=== PATIENT | male | born 1990 | race Asian ===

== ENCOUNTER 2017-07-03 20:50 | Inpatient (IN) | payer BC, MEDICAID ==
[2017-07-03] MEDS ORDERED: Morphine Sulfate 2 mg/mL 1mL Syr IVP PRN (21:32)
[2017-07-03] MEDS: D5-0.9%NS 1,000 ML IV SCH (21:45)
[2017-07-03 22:05] VITALS: BP 113/63
[2017-07-03 23:00] LABS: HEMATOCRIT 36.8 % (39.0-49.0); HEMOGLOBIN 11.9 gm/dL (13.2-17.3); MEAN CORPUSCULAR HEMOGLOBIN 20.3 pg (26.0-30.0); MEAN CORPUSCULAR HGB CONC 32.3 pg (28.0-36.0); MEAN PLATELET VOLUME 7.6 fl; PLATELET COUNT 522 Th/cmm (150-400); RED BLOOD COUNT 5.86 Mil/cmm (4.30-5.70); RED CELL DISTRIBUTION WIDTH 13.1 % (11.5-20.0)
[2017-07-03 23:06] LABS: ALKALINE PHOSPHATASE 142 U/L (34-104); BILIRUBIN,TOTAL 0.4 mg/dL (0.3-1.0); BUN - UREA NITROGEN 16 mg/dL (7-25); CALCIUM SERUM 9.5 mg/dL (8.6-10.3); CHLORIDE 100 mEq/L (98-107); GLUCOSE 121 mg/dL (70-105); SGOT 36 U/L (13-39); SGPT/ALT 58 U/L (7-52); SODIUM SERUM 135 mEq/L (136-145)
[2017-07-03 23:14] LABS: WHITE BLOOD COUNT 19.8 Th/cmm (4.8-10.8)
[2017-07-03 23:37] LABS: MEAN CELL VOLUME 62.2 fl (80-99)
[2017-07-04] MEDS ORDERED: Levofloxacin 500mg/100mL 500 MG/100 ML BAG IV ONE (00:15)
[2017-07-04 00:22] LABS: BAND NEUTROPHILE 7 % (0-10); BASOPHIL 1 % (0-3); EOSINOPHIL 2 % (0-5); MICROCYTOSIS 3+; NEUTROPHILS 75 % (40-80); PLATELET ESTIMATE ADEQUATE (NORMAL); PLATELET MORPHOLOGY NORMAL (NORMAL); TOTAL CELLS COUNTED 100
[2017-07-04] MEDS: metroNIDAZOLE 500mg/NS 100mL 500 MG/100 ML BAG IV SCH ×3 (05:00→20:03)
[2017-07-04 07:35] LABS: ANION GAP 9.2 (7.0-16.0); BUN - UREA NITROGEN 13 mg/dL (7-25); BUN/CREATININE RATIO 14.4; CALCIUM SERUM 9.2 mg/dL (8.6-10.3); CHLORIDE 101 mEq/L (98-107); CREATININE - SERUM 0.9 mg/dL (0.7-1.3); GLUCOSE 113 mg/dL (70-105); POTASSIUM SERUM 4.2 mEq/L (3.5-5.1); SODIUM SERUM 134 mEq/L (136-145)
[2017-07-04 07:41] LABS: HEMOGLOBIN 11.5 gm/dL (13.2-17.3); MEAN CORPUSCULAR HEMOGLOBIN 20.1 pg (26.0-30.0); MEAN CORPUSCULAR HGB CONC 32.1 pg (28.0-36.0); MEAN PLATELET VOLUME 8.4 fl; PLATELET COUNT 526 Th/cmm (150-400); RED BLOOD COUNT 5.75 Mil/cmm (4.30-5.70); RED CELL DISTRIBUTION WIDTH 13.1 % (11.5-20.0)
[2017-07-04 08:03] LABS: WHITE BLOOD COUNT 17.9 Th/cmm (4.8-10.8)
[2017-07-04 08:23] LABS: MEAN CELL VOLUME 62.5 fl (80-99); TOTAL CELLS COUNTED 100
[2017-07-04 08:24] LABS: ANISOCYTOSIS 1+; BAND NEUTROPHILE 3 % (0-10); EOSINOPHIL 4 % (0-5); MICROCYTOSIS 2+; NEUTROPHILS 77 % (40-80); PLATELET ESTIMATE INCREASED PLATELETS (NORMAL)
[2017-07-04 08:25] LABS: TOXIC GRANULATION 1+
[2017-07-04] MEDS: D5-0.9%NS 1,000 ML IV SCH (08:38)
--- NOTE | 2017-07-04 10:06 | Consultation ---
DATE OF CONSULTATION: 07/04/2017 REFERRING PHYSICIAN: Dr. Acuna. REASON FOR CONSULTATION: Abdominal pain. Thank you for referring this patient to me. HISTORY OF PRESENT ILLNESS: This is a 26-year-old male, who had severe abdominal pain causing him to go to the ER and admission at [facility] 3 days ago. The patient resides in that area, but has family here and was visiting. He was diagnosed there with diverticulitis. The patient went to the [facility] and from there, transferred here last night with again diagnosis of diverticulitis. On discharge from [facility] he was given Cipro. LABORATORY STUDIES: From [facility] shows leukocytosis, and a CT scan confirms presence of diverticulosis in the left colon with no evidence of abscess or perforation. PHYSICAL EXAMINATION: She has tenderness in the left lower quadrant. Otherwise, the patient is certainly comfortable. RECOMMENDATIONS: Continue antibiotics therapy. Diet for diverticulosis will be given to the patient as this apparently has not been given to him post-discharge from [facility]. Thank you for this consultation. We will follow as needed. [facility]# [id number]
[2017-07-04] MEDS ORDERED: Morphine Sulfate 4 mg/mL 1mL Syr IV PRN (16:42)
[2017-07-04] MEDS ORDERED: Morphine Sulfate 4 mg/mL 1mL Syr IVP PRN (16:44)
--- NOTE | 2017-07-04 17:04 | History & Physical ---
ADMIT DATE: 07/04/2017 CHIEF COMPLAINT: Abdominal pain. HISTORY OF PRESENT ILLNESS: The patient is a 26-year-old male with complaints of left-sided abdominal pain. The patient went to urgent care and brought ____. The patient was prescribed Cipro, took 3-4 days, but did not help with complaints. The patient states that the pain is stable and ____ increased. The patient has fever for last week. No nausea, vomiting, diarrhea. No hematochezia or bloody stools. PAST MEDICAL HISTORY: Negative. ALLERGIES: Negative. PAST SURGICAL HISTORY: Negative. MEDICATIONS: None. REVIEW OF SYSTEMS: See history of present illness. PHYSICAL EXAMINATION: GENERAL: The patient is awake, alert, nontoxic in appearance. VITAL SIGNS: On admission, temperature 101.8, pulse 97, respiration 18, O2 sat ____ on room air. HEENT: Normocephalic, atraumatic. Extraocular movements are intact. Oropharynx clear. NECK: Supple, no thyromegaly. CARDIOVASCULAR: S1, S2. No rubs, gallops. LUNGS: Clear. No wheezing or rhonchi. GASTROINTESTINAL: Soft, tender in left ____ quadrant, nondistended. Positive bowel sounds. GENITOURINARY: No significant suprapubic tenderness. BACK: No midline tenderness. SKIN: Negative. EXTREMITIES: Equal pulses bilaterally. No cyanosis, clubbing or edema. SKIN: Negative. NEUROLOGIC: Cranial nerves 2-12 intact. Extraocular movements intact. Sensation intact. Neurovascular is intact. Bilateral ____ grossly normal. LABORATORY DATA: Hematology: WBC 19.8, hemoglobin ____, hematocrit ____, platelet count of ____, 12% lymphocytes. Sodium 135, potassium 4.0, chloride 100, bicarb 29, anion gap 10, BUN 16, creatinine 1.0, GFR more than 60, glucose 121, calcium 9.5, total bilirubin 0.4, AST 36, ALT ____, alkaline phosphatase ____, total protein 7.6, albumin 3.8, globulin 3.8. RADIOLOGICAL TESTS: CT scan done at [facility] ER shows ill-defined soft tissue density mass along the ____ wall of the descending colon ____ from stranding. Mass effect of the descending colon and focal wall thickening. IMPRESSION: 1. Abdominal pain. 2. Fever. 3. Colonic mass. 4. Diverticulitis. PLAN: The patient is admitted to Med/Surg Unit at [facility]. The patient was transferred from [facility] ER. I will obtain further lab and consultations as needed. JOB# [id number]
[2017-07-04] MEDS: Levofloxacin 500mg/100mL Premix Bag IV SCH (21:45)
[2017-07-04 22:12] LABS: URINE BILIRUBIN NEGATIVE (NEGATIVE); URINE BLOOD NEGATIVE (NEGATIVE); URINE GLUCOSE (UA) NEGATIVE (NEGATIVE); URINE KETONE NEGATIVE (NEGATIVE); URINE PH 6.5 (4.6 - 8.0); URINE PROTEIN NEGATIVE (NEGATIVE); URINE UROBILINOGEN 0.2 E.U./dL (0.2 - 1.0)
[2017-07-04 22:17] LABS: URINE COLOR YELLOW
[2017-07-04 22:18] LABS: URINE BACTERIA FEW /hpf (NONE SEEN); URINE EPITHELIAL CELLS RARE /lpf (FEW); URINE RBC NONE SEEN /hpf (0-5); URINE WBC 0-2 /hpf (0-5)
[2017-07-05] MEDS: metroNIDAZOLE 500mg/NS 100mL 500 MG/100 ML BAG IV SCH ×3 (04:53→20:23)
[2017-07-05] MEDS: D5-0.9%NS 1,000 ML IV SCH ×2 (04:54→18:34)
--- NOTE | 2017-07-05 06:07 | Consultation ---
DATE OF CONSULTATION: 07/04/2017 REQUESTING PHYSICIAN: Arnold Acuna M.D. REASON FOR CONSULTATION: Abdominal pain. HISTORY OF PRESENT ILLNESS: A 26-year-old male, otherwise healthy, presenting with a 1-month history of persistent and possibly worsening left sided abdominal pain. He initially presented to an urgent care in the [facility] and a CT at that time suggested diverticulitis. The patient was given antibiotics without improvement of symptoms. He then presented to [facility] ER here for similar symptoms and he was transferred here to this facility for further evaluation. CT of the abdomen and pelvis at [facility] showed an ill-defined soft tissue mass-like lesion, possibly at the outer wall of the descending colon with surrounding stranding and edema, extrinsic compression of the colonic lumen. PMH: As above. PAST SURGICAL HISTORY: None. MEDICATIONS: Here are Tylenol, IV fluids, Levaquin, Flagyl, Ativan, morphine, and Zofran. ALLERGIES: None. SOCIAL HISTORY: No recent tobacco, alcohol or drugs. FAMILY HISTORY: Noncontributory. REVIEW OF SYSTEMS: Negative. PHYSICAL EXAMINATION: VITAL SIGNS: Afebrile, blood pressure 115/57, pulse is 95, respirations 18, O2 sats 97%. GENERAL: The patient is well-developed, well-nourished male who is young, in no acute distress, girlfriend present at bedside. HEENT: Sclerae nonicteric. Oropharynx is clear. CARDIOVASCULAR: Heart regular rate and rhythm. LUNGS: Clear to auscultation bilaterally. ABDOMEN: Soft, [id number] left-sided tenderness to palpation without rebound or guarding. EXTREMITIES: No clubbing, cyanosis or edema. RECTAL: Deferred. LABORATORY DATA AND IMAGING: Initial WBC 19.8, now down to 17.9, hemoglobin 11, platelet count is 526. Sodium is 134, creatinine is normal. Liver enzymes show an AST of 36, ALT noted, alkaline phosphatase 142, bilirubin 0.4, and albumin 3.8. IMPRESSION: 1. Left-sided abdominal pain with CT showing an ill-defined soft tissue density in the descending colon with surrounding inflammation. This could be diverticulitis or epipiploic appendagitis vs. less likely IBD, colon neoplasm or lymphoma. 2. Leukocytosis, improved. 3. Weight loss. RECOMMENDATIONS: 1. IV antibiotics. 2. Monitor labs and pain. 3. Consider colonoscopy or sigmoidoscopy once his pain has improved after a "cool off period." JOB# [id number] GAVIN
[2017-07-05 06:33] LABS: HEMOGLOBIN 11.4 gm/dL (13.2-17.3); MEAN CORPUSCULAR HEMOGLOBIN 19.8 pg (26.0-30.0); MEAN CORPUSCULAR HGB CONC 31.7 pg (28.0-36.0); PLATELET COUNT 499 Th/cmm (150-400); RED BLOOD COUNT 5.77 Mil/cmm (4.30-5.70); RED CELL DISTRIBUTION WIDTH 13.4 % (11.5-20.0)
[2017-07-05 07:15] LABS: INR 1.19 (0.5-1.4); PROTHROMBIN TIME (TEST) 12.5 SECONDS (9.5-11.5)
[2017-07-05 07:18] LABS: BUN - UREA NITROGEN 8 mg/dL (7-25); CALCIUM SERUM 9.3 mg/dL (8.6-10.3); CHLORIDE 102 mEq/L (98-107); CREATININE - SERUM 0.8 mg/dL (0.7-1.3); GLUCOSE 104 mg/dL (70-105); LIPASE 27 U/L (11-82); SODIUM SERUM 135 mEq/L (136-145)
--- NOTE | 2017-07-05 08:28 | General Progress Note ---
Subjective - Review of Systems Service Date: 07/05/17 Events since last encounter: having diarrhea less pain dietitian consult for diverticulosis diet ] Objective - Results Result Diagrams: 07/04/17 06:35 07/05/17 05:48 Recent Labs: Laboratory Last Values WBC 17.9 Th/cmm (4.8-10.8) H 07/04/17 06:35 RBC 5.75 Mil/cmm (4.30-5.70) H 07/04/17 06:35 Hgb 11.5 gm/dL (13.2-17.3) L 07/04/17 06:35 Hct 36.0 % (39.0-49.0) L 07/04/17 06:35 MCV 62.5 fl (80-99) L 07/04/17 06:35 MCH 20.1 pg (26.0-30.0) L 07/04/17 06:35 MCHC Differential 32.1 pg (28.0-36.0) 07/04/17 06:35 RDW 13.1 % (11.5-20.0) 07/04/17 06:35 Plt Count 526 Th/cmm (150-400) H 07/04/17 06:35 MPV 8.4 fl 07/04/17 06:35 Band Neutrophils % 3 % (0-10) 07/04/17 06:35 Neutrophils (Manual) 77 % (40-80) 07/04/17 06:35 Lymphocytes 8 % (20-50) L 07/04/17 06:35 Monocytes 8 % (2-10) 07/04/17 06:35 Eosinophils 4 % (0-5) 07/04/17 06:35 Basophils 1 % (0-3) 07/03/17 22:37 Toxic Granulation 1+ 07/04/17 06:35 Platelet Estimate INCREASED PLATELETS (NORMAL) 07/04/17 06:35 Platelet Morphology NORMAL (NORMAL) 07/03/17 22:37 Anisocytosis 1+ 07/04/17 06:35 Microcytosis 2+ 07/04/17 06:35 RBC Morph Micro Appear ABNORMAL (NORMAL) 07/03/17 22:37 ESR 26 mm/hr (0-20) H 07/05/17 05:48 PT 12.5 SECONDS (9.5-11.5) H 07/05/17 05:48 INR 1.19 (0.5-1.4) 07/05/17 05:48 Sodium 135 mEq/L (136-145) L 07/05/17 05:48 Potassium 4.0 mEq/L (3.5-5.1) 07/05/17 05:48 Chloride 102 mEq/L (98-107) 07/05/17 05:48 Carbon Dioxide 27.0 mEq/L (21.0-31.0) 07/05/17 05:48 Anion Gap 10.0 (7.0-16.0) 07/05/17 05:48 BUN 8 mg/dL (7-25) 07/05/17 05:48 Creatinine 0.8 mg/dL (0.7-1.3) 07/05/17 05:48 Est GFR ( Amer) > 60.0 ml/min (>90) 07/05/17 05:48 Est GFR (Non-Af Amer) > 60.0 ml/min 07/05/17 05:48 BUN/Creatinine Ratio 10.0 07/05/17 05:48 Glucose 104 mg/dL (70-105) 07/05/17 05:48 Calcium 9.3 mg/dL (8.6-10.3) 07/05/17 05:48 Total Bilirubin 0.4 mg/dL (0.3-1.0) 07/03/17 22:37 AST 36 U/L (13-39) 07/03/17 22:37 ALT 58 U/L (7-52) H 07/03/17 22:37 Alkaline Phosphatase 142 U/L (34-104) H 07/03/17 22:37 Total Protein 7.6 gm/dL (6.0-8.3) 07/03/17 22:37 Albumin 3.8 gm/dL (4.2-5.5) L 07/03/17 22:37 Globulin 3.8 gm/dL 07/03/17 22:37 Albumin/Globulin Ratio 1.0 (1.0-1.8) 07/03/17 22:37 Lipase 27 U/L (11-82) 07/05/17 05:48 Urine Source CATH 07/04/17 18:00 Urine Color YELLOW 07/04/17 18:00 Urine Clarity CLEAR (CLEAR) 07/04/17 18:00 Urine pH 6.5 (4.6 - 8.0) 07/04/17 18:00 Ur Specific [place] 1.015 (1.005-1.030) 07/04/17 18:00 Urine Protein NEGATIVE mg/dL (NEGATIVE) 07/04/17 18:00 Urine Glucose (UA) NEGATIVE mg/dL (NEGATIVE) 07/04/17 18:00 Urine Ketones NEGATIVE mg/dL (NEGATIVE) 07/04/17 18:00 Urine Blood NEGATIVE (NEGATIVE) 07/04/17 18:00 Urine Nitrate NEGATIVE (NEGATIVE) 07/04/17 18:00 Urine Bilirubin NEGATIVE (NEGATIVE) 07/04/17 18:00 Urine Urobilinogen 0.2 E.U./dL (0.2 - 1.0) 07/04/17 18:00 Ur Leukocyte Esterase NEGATIVE (NEGATIVE) 07/04/17 18:00 Urine RBC NONE SEEN /hpf (0-5) 07/04/17 18:00 Urine WBC 0-2 /hpf (0-5) 07/04/17 18:00 Ur Epithelial Cells RARE /lpf (FEW) 07/04/17 18:00 Urine Bacteria FEW /hpf (NONE SEEN) 07/04/17 18:00 - Physical Exam Vitals and I&O: Vital Signs Temp 98.7 F 07/05/17 04:00 Pulse 78 07/05/17 04:00 Resp 19 07/05/17 04:00 BP 110/61 07/05/17 04:00 Pulse Ox 98 07/05/17 04:00 Intake & Output 07/04/17 07/05/17 07/05/17 18:59 06:59 18:59 Intake Total 1100 1210 Balance 1100 1210 Intake: Intake, IV Amount 1100 1210 D5-0.9%Ns 1,000 ml @ 100 1000 1010 mls/hr IV .Q10H [facility] Rx#: [id number] Levofloxacin 500mg/100mL 100 500 mg In 100 ml @ 100 mls/hr IV Q24HR [facility] Rx#: [id number] metroNIDAZOLE 500mg/NS 100 100 100mL 500 mg In 100 ml @ 100 mls/hr IV Q8HR [facility] Rx #:[id number] Active Medications: Current Medications Acetaminophen (Tylenol 650mg Supp) 650 mg RC Q6H PRN PRN Reason: Mild Pain/Headache/T above 101 Stop: 09/01/17 21:31 Acetaminophen (Tylenol) 650 mg PO Q4H PRN PRN Reason: temperature >101 Stop: 09/02/17 22:39 Dextrose/Sodium Chloride (D5-0.9%Ns) 1,000 mls @ 100 mls/hr IV .Q10H [facility] Stop: 09/01/17 21:44 Last Infusion: 07/05/17 05:00 Dose: 100 mls/hr Metronidazole (Flagyl) 500 mg in 100 mls @ 100 mls/hr IV Q8HR [facility] Stop: 09/02/17 04:59 Last Admin: 07/05/17 04:53 Dose: 100 mls/hr Levofloxacin (Levaquin Pb) 500 mg in 100 mls @ 100 mls/hr IV Q24HR [facility] Stop: 09/02/17 20:59 Last Infusion: 07/04/17 23:34 Dose: Infused Lorazepam (Ativan) 1 mg IVP Q4H PRN; Protocol PRN Reason: Anxiety/Agitation Stop: 09/01/17 21:31 Morphine Sulfate (Morphine) 2 mg IVP Q4H PRN PRN Reason: SEVERE PAIN Stop: 09/02/17 16:41 Ondansetron HCl (Zofran) 4 mg IVP Q6H PRN PRN Reason: Nausea / Vomiting Stop: 09/01/17 21:31
[2017-07-05 08:29] LABS: MEAN CELL VOLUME 62.4 fl (80-99); WHITE BLOOD COUNT 16.3 Th/cmm (4.8-10.8)
[2017-07-05 09:34] LABS: BAND NEUTROPHILE 1 % (0-10); BASOPHIL 1 % (0-3); EOSINOPHIL 5 % (0-5); MICROCYTOSIS 3+; NEUTROPHILS 71 % (40-80); PLATELET ESTIMATE INCREASED PLATELETS (NORMAL); PLATELET MORPHOLOGY NORMAL (NORMAL); TOTAL CELLS COUNTED 100
[2017-07-05] MEDS: Levofloxacin 500mg/100mL Premix Bag IV SCH (22:39)
--- NOTE | 2017-07-06 00:39 | Progress Notes ---
DATE: 07/05/2017 SUBJECTIVE: The patient is awake, alert. The patient is on IV antibiotics. The patient was given IV fluids. The patient is on a clear liquid diet. OBJECTIVE: VITAL SIGNS: Temperature 98.7, pulse 78, ____, respirations 19, ____% on room air. CARDIOVASCULAR: S1 and S2. RESPIRATORY: Clear. ABDOMEN: Soft, mild tenderness. Nondistended. Positive bowel sounds. LABORATORY DATA: Hematology: WBC of 16.3, hemoglobin is 11.4, hematocrit 36.0, platelet count of 499, 14% lymphocytes. ESR is 26. PT 12.5, INR 1.19. Chemistry: Sodium 135, potassium 4.0, chloride 102, bicarbonate 27, anion gap 10, BUN 8, creatinine 0.8, GFR is 160, glucose 104. Calcium is 9.3 and lipase is 27. Microbiology: No new micro results. ASSESSMENT: 1. Sepsis. 2. Leukocytosis. 3. Anemia. 4. Thrombocytosis. 5. Diverticulitis. 6. Possible colonic mass. PLAN: Continue management and treatment. Obtain labs in a.m. Await culture results. Further recommendation per consultation service. JOB# [id number]
--- NOTE | 2017-07-06 03:15 | Consultation ---
DATE OF CONSULTATION: 07/04/2017 PRIMARY CARE PHYSICIAN: Dr. Trevin Acuna. REASON FOR CONSULTATION: Diverticulitis. HISTORY OF PRESENT ILLNESS: This is a 26-year-old male, who started having pain in the left side of the abdomen a week ago and gradually got worse. She went to [facility] where the patient was evaluated and diagnosed as diverticulitis. The patient was transferred to [facility] for further treatment and was seen by Dr. Chapa. Conservative treatment was recommended. The patient also requested to have GI consultation. PAST MEDICAL HISTORY: None. ALLERGIES: None. SOCIAL HISTORY: Nonsmoker. FAMILY HISTORY: No family history. REVIEW OF SYSTEMS: A 14-point review of system negative. No allergies except above. PHYSICAL EXAMINATION: GENERAL: A young male, alert, awake, oriented x 3. VITAL SIGNS: Stable. HEENT: Mild pallor, no icterus or plaque. NECK: Supple. ____. No thyromegaly. No cervical lymph nodes. LUNGS: Breath sounds bilateral vesicular. CARDIOVASCULAR: S1, S2. ABDOMEN: Left lower quadrant tenderness. No ascites. EXTREMITIES: Pulses palpable in all the limbs. No joint swelling. DIAGNOSTIC DATA: CAT scan showed diverticulosis without any abscess or perforation. DIAGNOSIS: Diverticulitis. PLAN: The patient was started on Levaquin and Flagyl. Supportive care. Rest of the care as ordered in [facility]. Pain control with opiates. Thank you, Dr. Acuna, for this consultation. JOB# [id number]
[2017-07-06] MEDS: metroNIDAZOLE 500mg/NS 100mL 500 MG/100 ML BAG IV SCH ×2 (04:02→12:21)
[2017-07-06 06:35] LABS: % EOSINOPHILS 3.7 % (0.0-5.0); % LYMPHOCYTES 19.8 % (20.0-50.0); % MONOCYTES 7.4 % (2.0-10.0); % NEUTROPHILS 68.1 % (40.0-80.0); HEMATOCRIT 36.2 % (39.0-49.0); HEMOGLOBIN 11.5 gm/dL (13.2-17.3); MEAN CORPUSCULAR HEMOGLOBIN 19.7 pg (26.0-30.0); MEAN CORPUSCULAR HGB CONC 31.7 pg (28.0-36.0); MEAN PLATELET VOLUME 8.7 fl; NEUTROPHILE ABSOLUTE 6.4 Th/cmm (1.8-8.0); PLATELET COUNT 496 Th/cmm (150-400); RED BLOOD COUNT 5.81 Mil/cmm (4.30-5.70); RED CELL DISTRIBUTION WIDTH 13.2 % (11.5-20.0)
[2017-07-06 06:38] LABS: WHITE BLOOD COUNT 9.3 Th/cmm (4.8-10.8)
[2017-07-06 06:52] LABS: INR 1.25 (0.5-1.4); PROTHROMBIN TIME (TEST) 13.2 SECONDS (9.5-11.5)
[2017-07-06 06:58] LABS: ALKALINE PHOSPHATASE 129 U/L (34-104); ANION GAP 11.3 (7.0-16.0); BILIRUBIN,TOTAL 0.3 mg/dL (0.3-1.0); BUN - UREA NITROGEN 12 mg/dL (7-25); CALCIUM SERUM 9.6 mg/dL (8.6-10.3); CARBON DIOXIDE 26.5 mEq/L (21.0-31.0); CHLORIDE 103 mEq/L (98-107); CREATININE - SERUM 0.8 mg/dL (0.7-1.3); GLUCOSE 104 mg/dL (70-105); POTASSIUM SERUM 4.8 mEq/L (3.5-5.1); SGOT 22 U/L (13-39); SGPT/ALT 47 U/L (7-52); SODIUM SERUM 136 mEq/L (136-145)
[2017-07-06] MEDS: D5-0.9%NS 1,000 ML IV SCH (09:12)
[2017-07-06 09:13] LABS: MEAN CELL VOLUME 62.4 fl (80-99)
--- NOTE | 2017-07-06 12:57 | General Progress Note ---
Subjective - Review of Systems Service Date: 07/06/17 Events since last encounter: FOR COLONOSCOPY TODAY WILL NOT NEED TO FOLLOW PATIENT - NEED NUTRITION CONSULT AND DIET LIST Objective - Results Result Diagrams: 07/06/17 05:59 07/06/17 05:59 Recent Labs: Laboratory Last Values WBC 9.3 Th/cmm (4.8-10.8) D 07/06/17 05:59 RBC 5.81 Mil/cmm (4.30-5.70) H 07/06/17 05:59 Hgb 11.5 gm/dL (13.2-17.3) L 07/06/17 05:59 Hct 36.2 % (39.0-49.0) L 07/06/17 05:59 MCV 62.4 fl (80-99) L 07/06/17 05:59 MCH 19.7 pg (26.0-30.0) L 07/06/17 05:59 MCHC Differential 31.7 pg (28.0-36.0) 07/06/17 05:59 RDW 13.2 % (11.5-20.0) 07/06/17 05:59 Plt Count 496 Th/cmm (150-400) H 07/06/17 05:59 MPV 8.7 fl 07/06/17 05:59 Neutrophils % 68.1 % (40.0-80.0) 07/06/17 05:59 Band Neutrophils % 1 % (0-10) 07/05/17 05:48 Lymphocytes % 19.8 % (20.0-50.0) L 07/06/17 05:59 Monocytes % 7.4 % (2.0-10.0) 07/06/17 05:59 Eosinophils % 3.7 % (0.0-5.0) 07/06/17 05:59 Basophils % 1.0 % (0.0-2.0) 07/06/17 05:59 Neutrophils (Manual) 71 % (40-80) 07/05/17 05:48 Lymphocytes 14 % (20-50) L 07/05/17 05:48 Monocytes 8 % (2-10) 07/05/17 05:48 Eosinophils 5 % (0-5) 07/05/17 05:48 Basophils 1 % (0-3) 07/05/17 05:48 Toxic Granulation 1+ 07/04/17 06:35 Platelet Estimate INCREASED PLATELETS (NORMAL) 07/05/17 05:48 Platelet Morphology NORMAL (NORMAL) 07/05/17 05:48 Anisocytosis 1+ 07/04/17 06:35 Microcytosis 3+ 07/05/17 05:48 RBC Morph Micro Appear ABNORMAL (NORMAL) 07/05/17 05:48 ESR 11 mm/hr (0-20) 07/06/17 05:59 PT 13.2 SECONDS (9.5-11.5) H 07/06/17 05:59 INR 1.25 (0.5-1.4) 07/06/17 05:59 Sodium 136 mEq/L (136-145) 07/06/17 05:59 Potassium 4.8 mEq/L (3.5-5.1) 07/06/17 05:59 Chloride 103 mEq/L (98-107) 07/06/17 05:59 Carbon Dioxide 26.5 mEq/L (21.0-31.0) 07/06/17 05:59 Anion Gap 11.3 (7.0-16.0) 07/06/17 05:59 BUN 12 mg/dL (7-25) 07/06/17 05:59 Creatinine 0.8 mg/dL (0.7-1.3) 07/06/17 05:59 Est GFR ( Amer) > 60.0 ml/min (>90) 07/06/17 05:59 Est GFR (Non-Af Amer) > 60.0 ml/min 07/06/17 05:59 BUN/Creatinine Ratio 15.0 07/06/17 05:59 Glucose 104 mg/dL (70-105) 07/06/17 05:59 Calcium 9.6 mg/dL (8.6-10.3) 07/06/17 05:59 Total Bilirubin 0.3 mg/dL (0.3-1.0) 07/06/17 05:59 AST 22 U/L (13-39) 07/06/17 05:59 ALT 47 U/L (7-52) 07/06/17 05:59 Alkaline Phosphatase 129 U/L (34-104) H 07/06/17 05:59 C-Reactive Protein 12.2 mg/dL (0.0-0.9) H 07/06/17 05:59 Total Protein 7.6 gm/dL (6.0-8.3) 07/06/17 05:59 Albumin 3.7 gm/dL (4.2-5.5) L 07/06/17 05:59 Globulin 3.9 gm/dL 07/06/17 05:59 Albumin/Globulin Ratio 1.0 (1.0-1.8) 07/06/17 05:59 Lipase 27 U/L (11-82) 07/05/17 05:48 Carcinoembryonic Ag 1.2 ng/mL (0.0-4.7) 07/04/17 06:35 Urine Source CATH 07/04/17 18:00 Urine Color YELLOW 07/04/17 18:00 Urine Clarity CLEAR (CLEAR) 07/04/17 18:00 Urine pH 6.5 (4.6 - 8.0) 07/04/17 18:00 Ur Specific [place] 1.015 (1.005-1.030) 07/04/17 18:00 Urine Protein NEGATIVE mg/dL (NEGATIVE) 07/04/17 18:00 Urine Glucose (UA) NEGATIVE mg/dL (NEGATIVE) 07/04/17 18:00 Urine Ketones NEGATIVE mg/dL (NEGATIVE) 07/04/17 18:00 Urine Blood NEGATIVE (NEGATIVE) 07/04/17 18:00 Urine Nitrate NEGATIVE (NEGATIVE) 07/04/17 18:00 Urine Bilirubin NEGATIVE (NEGATIVE) 07/04/17 18:00 Urine Urobilinogen 0.2 E.U./dL (0.2 - 1.0) 07/04/17 18:00 Ur Leukocyte Esterase NEGATIVE (NEGATIVE) 07/04/17 18:00 Urine RBC NONE SEEN /hpf (0-5) 07/04/17 18:00 Urine WBC 0-2 /hpf (0-5) 07/04/17 18:00 Ur Epithelial Cells RARE /lpf (FEW) 07/04/17 18:00 Urine Bacteria FEW /hpf (NONE SEEN) 07/04/17 18:00 - Physical Exam Vitals and I&O: Vital Signs Temp 97 F 07/06/17 12:14 Pulse 65 07/06/17 12:14 Resp 18 07/06/17 12:14 BP 109/64 07/06/17 04:00 Pulse Ox 99 07/06/17 12:14 Intake & Output 07/05/17 07/06/17 07/06/17 18:59 06:59 18:59 Intake Total 990 1400 Balance 990 1400 Weight (lbs) 59.988 kg Intake: Intake, IV Amount 990 1400 D5-0.9%Ns 1,000 ml @ 637 389 1902 mls/hr IV .Q10H [facility] Rx#: [id number] Levofloxacin 500mg/100mL 100 500 mg In 100 ml @ 100 mls/hr IV Q24HR [facility] Rx#: [id number] metroNIDAZOLE 500mg/NS 300 100mL 500 mg In 100 ml @ 100 mls/hr IV Q8HR [facility] Rx #:[id number] Other: # Voids 1 # Bowel Movements 0 Active Medications: Current Medications Acetaminophen (Tylenol 650mg Supp) 650 mg RC Q6H PRN PRN Reason: Mild Pain/Headache/T above 101 Stop: 09/01/17 21:31 Acetaminophen (Tylenol) 650 mg PO Q4H PRN PRN Reason: temperature >101 Stop: 09/02/17 22:39 Dextrose/Sodium Chloride (D5-0.9%Ns) 1,000 mls @ 100 mls/hr IV .Q10H [facility] Stop: 09/01/17 21:44 Last Admin: 07/06/17 09:12 Dose: 100 mls/hr Metronidazole (Flagyl) 500 mg in 100 mls @ 100 mls/hr IV Q8HR [facility] Stop: 07/06/17 23:00 Last Admin: 07/06/17 12:21 Dose: 100 mls/hr Levofloxacin (Levaquin Pb) 500 mg in 100 mls @ 100 mls/hr IV Q24HR [facility] Stop: 09/02/17 20:59 Last Infusion: 07/06/17 01:33 Dose: Infused Lorazepam (Ativan) 1 mg IVP Q4H PRN; Protocol PRN Reason: Anxiety/Agitation Stop: 09/01/17 21:31 Metronidazole (Flagyl) 500 mg PO TID [facility] Stop: 09/05/17 08:59 Morphine Sulfate (Morphine) 2 mg IVP Q4H PRN PRN Reason: SEVERE PAIN Stop: 09/02/17 16:41 Ondansetron HCl (Zofran) 4 mg IVP Q6H PRN PRN Reason: Nausea / Vomiting Stop: 09/01/17 21:31 Last Admin: 07/05/17 22:39 Dose: 4 mg Nutritional Asmnt/Malnutr-PDOC - Dietary Evaluation Malnutrition Findings (Please click <Entered> for more info): Nutritional Asmnt/Malnutrition Start: 07/04/17 12: 01 Text: Status: Complete Freq: Document 07/05/17 19:00 [facility] (Rec: 07/05/17 19:09 [facility] [id number]) Nutritional Asmnt/Malnutrition Patient General Information Nutritional Screening Consult Diagnosis Abdominal pain, fever, colonic mass, diverticulitis Pertinent Medical Hx/Surgical Hx None Subjective Information Nutrition consult for diverticulosis received and completed. Pt is a 26-year-old male admitted with chief complaint of left-sided abdominal pain. Pt was awake and alert, a good historian. Pt is currently on clear liquid diet and tolerating well. Pt reports eating twice a day, skipping breakfast. Dietary recall reveals low fiber intake, and pt admits lack of knowledge of dietary fiber. 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 Pt has a small body frame; ideal body wt adjusted for this. No muscle or fat depletion. Current Diet Order/ Nutrition Support Clear liquid Patient / S.O Indicated Pertinent Medications D5-0.9ns, Levaquin, Flagyl Pertinent Labs Reviewed Nutritional Hx/Data Height 1.65 m Height (Calculated Centimeters) 165.1 Current Weight (lbs) 59.874 kg Weight (Calculated Kilograms) 59.9 Weight (Calculated Grams) 25199.2 Usual body Weight (lbs) 135 % Usual Body Weight 98 [place] Body Weight 122 % [place] Body Weight 108 Recent Weight Change No Weight Status Approriate GI Symptoms GI Symptoms None Food Allergies No Usual diet at home Regular Skin Integrity/Comment: Roberto 21. Skin intact. Current %PO Fair (50-74%) Estimated Nutritional Goals BEE in Kcals: Using Current wt Calories/Kcals/Kg Based on current wt 60.1 kg Kcals Calculated 3915-6650 kcals/day (25-30 kcals/kg) Protein: Using Current wt Protein g/kg: Based on current wt 60.1 kg Protein Calculated 48-60 gm/day (0.8-1 gm/kg) Fluid: ml 9775-6207 ml/day (30-35 ml/kg) Nutritional Problem 1. Problem Problem Nutrition-related knowledge deficit related to Etiology lack of prior education and understanding as evidenced by Signs/Symptoms: pt unable to verbalize what dietary fiber is and sources of dietary fiber. Malnutrition Alert Protein-Calorie Malnutrition N/A Is there a minimum of two criteria No selected? Query Text:Check all the applicable criteria. A minimum of two criteria are recommended for diagnosis of either severe or non-severe malnutrition. Malnutrition Related to Morbid Obesity Malnutrition related to morbid obesity No Intervention/Recommendation Recommendations by RD Dietary Education by RD1 Comments 1. Advance to high fiber diet, as tolerated. 2. Educate pt on high fiber diet for divertulosis, function of dietary fiber and food sources. RD encourage adequate hydration and to increase to goal intake gradually. Expected Outcomes/Goals Expected Outcomes/Goals Pt will be able to verbalize two food sources of dietary fiber. Physician Parameters for PEM Normal Weight % 90% - 110% (Normal) Body Mass Index (BMI) 19 - 24 (Normal) Serum Albumin (g/dl) 3.5 - 5.0 (Normal)
--- NOTE | 2017-07-06 21:21 | Operative Report ---
DATE OF SURGERY: 07/06/2017 PROCEDURE: Colonoscopy with biopsy. PREPROCEDURE DIAGNOSES: 1. Left-sided abdominal pain with possible colitis versus diverticulitis. 2. Leukocytosis, now improved. POSTPROCEDURE DIAGNOSES: 1. Segmental colitis with ulceration involving a 10 cm segment of the descending colon, status post biopsy; possibly infectious versus inflammatory bowel disease versus less likely ischemic etiology. 2. Small internal hemorrhoids. INDICATIONS: A 26-year-old male with a month1- history of vague left-sided abdominal pain with imaging suggesting colitis versus diverticulitis versus other etiology. He also had leukocytosis. His pain and leukocytosis improved with initiation of IV antibiotics. A colonoscopy is planned today to evaluate the left colon. CONSENT: Informed consent was obtained from the patient prior to procedure. After detailed explanation of the risks, benefits, alternatives including but not limited to infection, bleeding, perforation, . SEDATION: Monitored anesthesia care per Dr. Villela. DESCRIPTION OF PROCEDURE AND FINDINGS: The procedure took place as an inpatient in the GI Suite of [facility]. The patient was kept in the left lateral decubitus position, adequate sedation was achieved with the above medications. Rectal examination revealed normal sphincter tone with no rectal masses. The Olympus pediatric colonoscope was advanced via the patient's anus and into the rectum with ease and was advanced up to the cecum, which was visualized by landmarks of ileocecal valve and appendiceal orifice. Quality of bowel preparation was good. The scope was then slowly withdrawn, and the underlying colonic mucosa examined in further detail. There was a 10 cm segment of colitis in a circumferential distribution with mostly edema and easy friability with one area of ulceration. This ulcer was about 1 cm in length and clean based. It was biopsied at its edges and submitted for histopathology. Potential etiologies include infectious versus ischemic versus also Crohn's disease or ulcerative colitis less likely. No active bleeding at the time of colonoscopy. Retroflexion in the rectum revealed small internal hemorrhoids. No other areas of colitis were identified. The patient tolerated the procedure well. COMPLICATIONS: None . RECOMMENDATIONS: 1. Follow up biopsy results. 2. Antibiotics. 3. Diet as tolerated. 4. Outpatient GI followup. 5. Disposition: As per hospitalist with oral antibiotics at home. The patient will be monitored postoperatively and if he has no symptoms then he may be discharged home as per the hospitalist. Thank you, Dr. Arnold Acuna for involving us in the care of your patient. If you have any further questions, please call us. JOB# [id number]
--- NOTE | 2017-07-07 03:04 | Progress Notes ---
DATE: 07/06/2017 SUBJECTIVE: The patient is awake, alert. The patient is on IV antibiotics. The patient is on IV fluids. The patient is planned for colonoscopy today. PHYSICAL EXAMINATION: VITAL SIGNS: Temperature 97.8, pulse 69, blood pressure ____, respiration 20, 100% on room air. CARDIOVASCULAR: S1, S2. RESPIRATORY: Clear. GASTROINTESTINAL: Soft. Positive bowel sounds. LABORATORY DATA: Hematology, WBC 9.3, hemoglobin ____, platelet count of 496. PT 13.2, INR 1.25. Chemistry: Sodium ____, potassium 4.8, chloride 103, bicarbonate 26, anion gap 11, BUN 12, creatinine 0.8, GFR is 160, glucose 104, calcium 9.6, total bili 0.3, AST 22, ALT 47, alkaline phosphatase 129. total protein 7.6, albumin 3.7, globulin 3.9. Microbiology: MRSA screen from 07/04/2017 negative. ASSESSMENT: 1. Sepsis. 2. Diverticulitis. 3. ____ (improved). 4. Possible colonic mass. 5. Anemia. 6. Thrombocytosis. 7. Hypoalbuminemia. PLAN: Continue current medication and treatment. Obtain labs in a.m. The patient planned for colonoscopy today. ____ JOB# [id number]
--- NOTE | 2017-07-07 13:11 | Discharge Summary ---
DATE OF DISCHARGE: 07/06/2017 DISCHARGE DIAGNOSES: 1. Sepsis. 2. Diverticulitis. 3. Anemia. 4. Thrombocytosis. 5. Hypoalbuminemia. 6. ____ colitis. 7. Small internal hemorrhoids. 8. Leukocytosis (improved). 9. Abdominal pain, (improved). HOSPITAL COURSE: The patient is a 26-year-old male who was transferred from [facility]. The patient admitted with diagnoses of abdominal pain, ____, possible colonic mass, diverticulitis and sepsis. The patient admitted to medical/surgical unit. CONSULTATION OBTAINED. General Surgery consultation with Dr. Chapa. We will continue IV antibiotics. ID consultation, Dr. Benjamin Baker. Per recommendation of Infectious Disease, the patient was placed on Levaquin and Flagyl. GI consultation obtained from Dr. Abbott, who recommended continue IV antibiotics. The patient required colonoscopy and sigmoidoscopy after the patient's pain has improved. The patient responded well to IV antibiotics. The patient slightly improved. The patient's abdominal pain improved. The patient underwent colonoscopy on 07/06/2017. Finding colonoscopy shows sigmoid colitis, ulceration and small internal hemorrhoids. After clearance by General Surgery, Infectious Disease and GI, the patient was discharged home on 07/06/2017. The patient was discharged home on p.o. Levaquin and Flagyl for a total of 10-day course. [facility]# [id number]
== END 2017-07-06 18:00 | disposition home or self-care (01) | DRG 872 ==
LOC: MSI 20:50
PROVIDERS: ADMIT Preventive Medicine Preventive Medicine/Occupational Environmental Medicine; ATTEND Preventive Medicine Preventive Medicine/Occupational Environmental Medicine
PROC: 0DBM8ZX Excision of Descending Colon, Via Natural or Artificial Opening Endoscopic, Diagnostic (ICD-10-PCS; principal; 2017-07-06)
DX: A41.9 Sepsis, unspecified organism (principal); K51.90 Ulcerative colitis, unspecified, without complications; K57.92 Diverticulitis of intestine, part unspecified, without perforation or abscess without bleeding; D64.9 Anemia, unspecified; D47.3 Essential (hemorrhagic) thrombocythemia; R63.4 Abnormal weight loss; R19.7 Diarrhea, unspecified; E88.09 Other disorders of plasma-protein metabolism, not elsewhere classified; K64.8 Other hemorrhoids; Z68.22 Body mass index [BMI] 22.0-22.9, adult
CPT/HCPCS: 36415-UA; 80048-TC; 80053-TC; 81001-TC; 82378-90; 83690-TC; 85007-TC; 85025-TC; 85027-TC; 85610-TC; 85652-TC; 86141-TC; 90799; J1956; J2405; J7030; J7042; Z7610